=== PATIENT | male | born 1990 | race Caucasian/White ===

== ENCOUNTER 2018-09-15 03:59 | Emergency (ER) | payer BC ==
[2018-09-15 04:38] LABS: #Basophils 0.1 thou/uL (0.0-0.2); #Eosinphils 0.2 thou/uL (0.0-0.7); #Lymphocytes 2.8 thou/uL (1.20-3.40); #Monocytes 0.6 thou/uL (0.11-0.59); #Neutrophils 3.7 thou/uL (1.40-6.50); %Basophils 1.2 % (0.0-1.0); %Lymphocytes 38.5 % (21.0-51.0); %Monocytes 7.5 % (0.0-10.0); %Neutrophils 49.9 % (42.0-75.0); Mean Corpuscular HGB CONC 33.8 g/dL (32.0-36.0); Mean Corpuscular Volume 91.8 fL (78.0-98.0); Mean Platelet Volume 6.1 fL (7.4-10.4); Platelet Count 368 thou/uL (130-400); RBC Distribution Width 10.6 % (11.5-14.5); Red Blood Cell (RBC) Count 5.15 mill/uL (4.70-6.10); White Blood Cell (WBC) Count 7.4 thou/uL (4.8-10.8)
[2018-09-15 04:50] LABS: CKMB 0.8 ng/mL (0-6.6); Troponin I Less than 0.010 ng/mL (< 0.028)
[2018-09-15 04:51] LABS: ALT (SGPT) 28 U/L (8-55); AST (SGOT) 22 U/L (5-34); Albumin 4.7 g/dL (3.5-5.0); Alkaline Phosphatase 65 U/L (40-150); Anion Gap 18 mmol/L (10-20); BUN (Urea Nitrogen) 14 mg/dL (8.9-20.6); Calc. Creatinine Clearance 0 mL/min (70-130); Calcium 9.6 mg/dL (7.8-10.44); Carbon Dioxide 23 mmol/L (22-29); Chloride 105 mmol/L (98-107); Estimated GFR-MDRD 64; Globulin 2.4 g/dL (2.4-3.5); Glucose 118 mg/dL (70-105); Potassium 3.7 mmol/L (3.5-5.1); Protein, Total 7.1 g/dL (6.0-8.3); Sodium 142 mmol/L (136-145)
[2018-09-15] MEDS ORDERED: Lorazepam 2 MG/ML VIAL ONE ×2 (04:55→06:27)
[2018-09-15 07:29] LABS: Amphetamine Not Detected (NotDetected); Barbiturates Screen Not Detected (NotDetected); Benzodiazepine Screen Not Detected (NotDetected); Cocaine Metabolite Screen Not Detected (NotDetected); Medtox Control Line Valid? VALID (VALID); Methadone Not Detected (NotDetected); Methamphetamine Not Detected (NotDetected); Opiate Screen Not Detected (NotDetected); Oxycodone Screen Not Detected (NotDetected); Phencyclidine (PCP) Not Detected (NotDetected); THC/Cannabinoid Screen Not Detected (NotDetected); Tricyclic Screen Not Detected (NotDetected)
[2018-09-15] MEDS ORDERED: Morphine 4 MG/ML VIAL ONE (07:57)
--- NOTE | 2018-09-15 08:00 | RAD ---
PORTABLE CHEST: Date: 09/15/18 HISTORY: Lung kat are clear. Heart and mediastinum appear normal. IMPRESSION: Negative portable chest. POS: [facility]
== END 2018-09-15 08:30 | disposition short-term general hospital (02) ==
LOC: MADERS 03:59
DX: R00.0 Tachycardia, unspecified (principal); F41.9 Anxiety disorder, unspecified; F32.9 Major depressive disorder, single episode, unspecified; F17.220 Nicotine dependence, chewing tobacco, uncomplicated
CPT/HCPCS: 71045; 80053; 80306; 80307; 82553; 84443; 84484; 85025; 93005; 96361; 96374; 96375; 96376; J2060; J2270

== ENCOUNTER 2020-01-17 12:08 | Emergency (ER) | payer BC ==
[~2020-01-17 12:08] MED LIST: Iopamidol 370 76% 100 ML VIAL ONE; Sodium Chloride 0.9% 1,000 ML BAG ONE
[2020-01-17 13:06] LABS: Hemoglobin 14.6 g/dL (14.0-18.0); Mean Corpuscular HGB CONC 31.7 g/dL (32.0-36.0); Mean Corpuscular Hemoglobin 30.3 pg (27.0-31.0); Mean Corpuscular Volume 95.4 fL (78.0-98.0); Mean Platelet Volume 6.1 fL (7.4-10.4); Platelet Count 359 thou/uL (130-400); Red Blood Cell (RBC) Count 4.82 mill/uL (4.70-6.10); White Blood Cell (WBC) Count 6.6 thou/uL (4.8-10.8)
[2020-01-17 13:07] LABS: ALT (SGPT) 32 U/L (8-55); AST (SGOT) 21 U/L (5-34); Albumin 4.7 g/dL (3.5-5.0); Alkaline Phosphatase 63 U/L (40-110); Anion Gap 13 mmol/L (10-20); Anisocytosis SLIGHT = 6-15 cells (100X) (0-5/hpf); BUN (Urea Nitrogen) 18 mg/dL (8.9-20.6); Band 3 % (5-11); Bilirubin, Total 0.7 mg/dL (0.2-1.2); CRP (Inflammatory) Less than 0.50 mg/dL (= or < 0.5); Calc. Creatinine Clearance 0 mL/min (70-130); Calcium 9.5 mg/dL (7.8-10.44); Carbon Dioxide 26 mmol/L (22-29); Chloride 105 mmol/L (98-107); Estimated GFR-MDRD 72; Globulin 2.4 g/dL (2.4-3.5); Glucose 96 mg/dL (70-105); Lymphocytes 28 % (21-51); MDiff Complete? YES; Manual Diff?? YES; Monocytes 3 % (0-10); Neutrophil 66 % (42-75); Potassium 4.5 mmol/L (3.5-5.1); Protein, Total 7.1 g/dL (6.0-8.3); Sodium 139 mmol/L (136-145)
[2020-01-17 13:08] LABS: Platelet Morphology Comment Appears Adequate
[2020-01-17] MEDS ORDERED: Morphine 4 MG/ML VIAL ONE (13:33)
[2020-01-17 13:40] LABS: Bilirubin Negative (Negative); Blood, Urine Negative (Negative); Clarity Clear (Clear); Glucose, Urine (Dipstick) Negative (Negative); Leukocyte Negative (Negative); Nitrite Negative (Negative); Protein, Urine (Dipstick) Negative (Neg-Trace); Urobilinogen 0.2 mg/dL (Less than 2)
--- NOTE | 2020-01-17 14:51 | CT ---
CT ABDOMEN AND PELVIS WITH IV CONTRAST 01/17/2020 CLINICAL INFORMATION: Left lower quadrant abdominal pain with blood in stool. History of diverticulitis. COMPARISON: None. Technique: Multiple contiguous axial CT images are obtained through the abdomen and pelvis with IV contrast. Cor onal reformatted images are provided. FINDINGS: Lower Chest: Tiny subcentimeter pleural-based nodular density is seen in the anterolateral aspect of the right middle lobe with similar tiny pleural based nodular density at the left lung base. Lung bases are otherwise clear. Vessels: Abdominal aorta is normal in caliber without evidence of an aortic dissection. Abdomen: Portal vein:Patent Gallbladder: Within normal limits for CT imaging. Liver: within normal limits. Spleen: within normal limits. Pancreas: within normal limits. Adrenals: within normal limits. Kidneys: within normal limits. Bowel: Colonic diverticulosis is seen involving the descending colon and greater involving the sigmoi d colon. No CT findings to suggest diverticulitis are seen. Loops of small bowel are normal in caliber. Appendix: Not visualized, but no secondary signs to suggest appendicitis are identified. Peritoneum: No ascites or free air; no fluid collection. Mesentery and Retroperitoneum: No enlarged mesenteric or retroperitoneal lymph nodes. Abdominal Wall: within normal limits. Pelvis: Reproductive Organs: No pelvic masses. Pelvis within normal limits. Bladder: within normal limits. Bones: Mild degenerative changes at the L4-5 level with prominent osteophytes anteriorly. IMPRESSION: 1. No acute findings are seen in the abdomen or pelvis. 2. Colonic diverticulosis without CT evidence of diverticulitis.
== END 2020-01-17 15:29 | disposition home or self-care (01) ==
LOC: MADERS 12:08
DX: K57.31 Diverticulosis of large intestine without perforation or abscess with bleeding (principal); I10 Essential (primary) hypertension; F41.9 Anxiety disorder, unspecified; F32.9 Major depressive disorder, single episode, unspecified; F17.220 Nicotine dependence, chewing tobacco, uncomplicated
CPT/HCPCS: 74177; 80053; 81003; 82150; 83690; 85025; 86140; 96361; 96374; J2270; J7050; Q9967

== ENCOUNTER 2020-07-10 13:57 | Emergency (ER) | payer BC, OTHER ==
[2020-07-10] MEDS ORDERED: Prochlorperazine 10 MG/2 ML VIAL ONE (14:36)
[2020-07-10] MEDS ORDERED: Sodium Chloride 0.9% 2,000 ML ONE (14:36)
[2020-07-10 14:59] LABS: #Basophils 0.1 thou/uL (0.0-0.2); #Eosinphils 0.1 thou/uL (0.0-0.7); #Lymphocytes 1.6 thou/uL (1.20-3.40); #Monocytes 0.4 thou/uL (0.11-0.59); #Neutrophils 5.3 thou/uL (1.40-6.50); %Eosinophils 1.7 % (0.0-10.0); %Lymphocytes 21.4 % (21.0-51.0); %Neutrophils 70.8 % (42.0-75.0); Hemoglobin 14.3 g/dL (14.0-18.0); Mean Corpuscular HGB CONC 32.8 g/dL (32.0-36.0); Mean Corpuscular Hemoglobin 30.5 pg (27.0-31.0); Mean Corpuscular Volume 93.2 fL (78.0-98.0); Mean Platelet Volume 5.8 fL (7.4-10.4); Platelet Count 403 thou/uL (130-400); RBC Distribution Width 11.2 % (11.5-14.5); Red Blood Cell (RBC) Count 4.69 mill/uL (4.70-6.10); White Blood Cell (WBC) Count 7.4 thou/uL (4.8-10.8)
[2020-07-10 15:16] LABS: ALT (SGPT) 29 U/L (8-55); AST (SGOT) 18 U/L (5-34); Albumin 4.3 g/dL (3.5-5.0); Alkaline Phosphatase 61 U/L (40-110); Anion Gap 13 mmol/L (10-20); BUN (Urea Nitrogen) 16 mg/dL (8.9-20.6); Bilirubin, Total 0.9 mg/dL (0.2-1.2); Calc. Creatinine Clearance 0 mL/min (70-130); Calcium 8.8 mg/dL (7.8-10.44); Carbon Dioxide 27 mmol/L (22-29); Chloride 106 mmol/L (98-107); Estimated GFR-MDRD 81; Globulin 2.5 g/dL (2.4-3.5); Glucose 119 mg/dL (70-105); Magnesium 2.2 mg/dL (1.6-2.6); Potassium 3.7 mmol/L (3.5-5.1); Protein, Total 6.8 g/dL (6.0-8.3); Sodium 142 mmol/L (136-145)
== END 2020-07-10 16:53 | disposition home or self-care (01) ==
LOC: MADERS 13:57
DX: R11.2 Nausea with vomiting, unspecified (principal); R51 Headache; R53.1 Weakness; R50.9 Fever, unspecified; Z20.828 Contact with and (suspected) exposure to other viral communicable diseases; F41.9 Anxiety disorder, unspecified; I10 Essential (primary) hypertension
CPT/HCPCS: 80053; 83735; 85025; 96361; 96374; J0780; J7050

== ENCOUNTER 2021-09-02 13:39 | Emergency (ER) | payer BC, SELFPAY ==
[2021-09-02] MEDS ORDERED: Morphine 4 MG/ML VIAL ONE (14:59)
[2021-09-02] MEDS ORDERED: Lactated Ringer's 1,000 ML ONE (14:59)
[2021-09-02] MEDS ORDERED: Ondansetron PF 4 MG/2 ML Vial ONE (14:59)
[2021-09-02 15:01] LABS: #Lymphocytes 1.4 thou/uL (1.20-3.40); #Monocytes 0.4 thou/uL (0.11-0.59); #Neutrophils 8.1 thou/uL (1.40-6.50); %Basophils 0.4 % (0.0-1.0); %Eosinophils 0.3 % (0.0-10.0); %Lymphocytes 13.9 % (21.0-51.0); %Monocytes 3.6 % (0.0-10.0); %Neutrophils 81.8 % (42.0-75.0); Hemoglobin 15.6 g/dL (14.0-18.0); Mean Corpuscular HGB CONC 32.6 g/dL (32.0-36.0); Mean Corpuscular Hemoglobin 31.8 pg (27.0-31.0); Mean Corpuscular Volume 97.5 fL (78.0-98.0); Platelet Count 335 thou/uL (130-400); RBC Distribution Width 10.7 % (11.5-14.5); White Blood Cell (WBC) Count 9.8 thou/uL (4.8-10.8)
[2021-09-02 15:11] LABS: Bilirubin Negative (Negative); Blood, Urine Negative (Negative); Clarity Clear (Clear); Glucose, Urine (Dipstick) Negative (Negative); Ketone, Urine Negative (Negative); Leukocyte Negative (Negative); Nitrite Negative (Negative); Protein, Urine (Dipstick) Negative (Neg-Trace); Specific Gravity, Urine 1.025 (1.005-1.030); Urobilinogen 0.2 mg/dL (Less than 2)
[2021-09-02 15:18] LABS: ALT (SGPT) 13 U/L (8-55); AST (SGOT) 15 U/L (5-34); Albumin 4.2 g/dL (3.5-5.0); Alkaline Phosphatase 72 U/L (40-110); Anion Gap 17 mmol/L (10-20); BUN (Urea Nitrogen) 24 mg/dL (8.9-20.6); Calc. Creatinine Clearance 0 mL/min (70-130); Calcium 9.8 mg/dL (7.8-10.44); Carbon Dioxide 24 mmol/L (22-29); Chloride 105 mmol/L (98-107); Globulin 3.1 g/dL (2.4-3.5); Glucose 130 mg/dL (70-105); Lipase 34 U/L (8-78); Potassium 4.3 mmol/L (3.5-5.1); Protein, Total 7.3 g/dL (6.0-8.3); Sodium 142 mmol/L (136-145)
== END 2021-09-02 17:05 | disposition home or self-care (01) ==
LOC: MADERS 13:39
DX: K57.32 Diverticulitis of large intestine without perforation or abscess without bleeding (principal); I10 Essential (primary) hypertension; F17.200 Nicotine dependence, unspecified, uncomplicated
CPT/HCPCS: 74177; 80053; 81003; 83605; 83690; 85025; 96374; 96375; J2270; J2405; J7120

== ENCOUNTER 2021-09-15 20:09 | Emergency (ER) | payer BC, OTHER ==
[2021-09-15] MEDS ORDERED: Morphine 10 MG/ML VIAL ONE (20:33)
[2021-09-15] MEDS ORDERED: Cyclobenzaprine 10 MG TAB ONE (20:34)
== END 2021-09-15 21:22 | disposition home or self-care (01) ==
LOC: MADERS 20:09
DX: M54.50 Low back pain, unspecified (principal); G89.29 Other chronic pain; I10 Essential (primary) hypertension; F17.220 Nicotine dependence, chewing tobacco, uncomplicated
CPT/HCPCS: 96372; 99283; J2270

== ENCOUNTER 2021-09-18 17:08 | Emergency (ER) | payer BC ==
[2021-09-18] MEDS ORDERED: HYDROcodone/Acetaminophen 5/325 mg Tablet ONE (18:46)
== END 2021-09-18 18:55 | disposition home or self-care (01) ==
LOC: MADERS 17:08
DX: G89.29 Other chronic pain (principal); M54.50 Low back pain, unspecified; I10 Essential (primary) hypertension; F17.200 Nicotine dependence, unspecified, uncomplicated; Z87.19 Personal history of other diseases of the digestive system; Z79.899 Other long term (current) drug therapy
CPT/HCPCS: 99283